=== PATIENT | male | born 1945 | race African-American/Black ===

== ENCOUNTER 2017-02-28 14:01 | Inpatient (IN) ==
--- NOTE | 2017-02-28 15:26 | Emergency Department Note ---
Arrival - Arrival Chief Complaint: Extremity Problem Stated Complaint: left foot swollen;loss of appatite ED Nursing Triage Note: reports swelling to left foot that started last . recently treated for bronchitis with levaquin and prednisone and reports swelling started after that. reports has been using epsom salt soak with some relief but swelling comes back. Mode of Arrival: Ambulatory Time Seen by Provider: 02/28/17 15:03 - History of Present Illness HPI Narrative: 72-year-old black male reports left lower extremity edema since . Denies known injury or insult. Patient reports the pain is minimal however does have tenderness of the posterior left knee. Patient was last seen on February 12 diagnosed with bronchitis, with Levaquin and prednisone. Only known history is glaucoma. Patient is otherwise healthy. Allergies/Adverse Reactions: Allergies Allergy/AdvReac Type Severity Reaction Status Date / Time Penicillins Allergy Intermediate RASH Verified 02/11/17 23:56 Review of System - Review of System 12 point system: reviewed and no additional remarkable complaints except as stated - Review of System Constitutional: Present: as per HPI. Absent: fever Medical,Surgical,& Family Hx - Medical History Cardio: History of: Hypertension HEENT: History of: Glaucoma - Social History Smoking Status: Former smoker Exam Physical Examination: - General General appearance: alert, in no apparent distress - Head Head exam: atraumatic, normocephalic, normal inspection - Eye Eye exam: normal appearance, EOMI - ENT ENT exam: normal exam, mucous membranes moist - Neck Neck exam: normal inspection, full ROM, trachea midline - Chest Chest inspection: normal inspection, symmetric chest wall rise - Respiratory Respiratory exam: normal lung sounds bilaterally, respirations even and unlabored - Cardiovascular Cardiovascular exam: regular rate, normal rhythm, normal heart sounds - Abdominal Exam Abdominal exam: soft without tenderness, normal bowel sounds - Extremities Exam Extremities exam: normal inspection, full ROM, normal capillary refill. Exception: 3+ left pedal edema, 2+ posterior tibialis pulse, stable ankle joint without crepitus, stable knee joint without crepitus, negative anterior and posterior drawer test, tender to palpation posterior left knee, no erythema or tenderness to left calf. - Back Exam Back exam: normal inspection, full ROM - Neurological Exam Neurological exam: alert, oriented X3 - Psychiatric Psychiatric exam: normal affect, normal mood - Skin Skin exam: warm, dry, intact, normal color Vital Signs: Vital Signs Temperature 98.5 F 02/28/17 14:15 Pulse Rate 85 02/28/17 14:15 Respiratory Rate 18 02/28/17 14:15 Blood Pressure 122/80 02/28/17 14:15 O2 Sat by Pulse Oximetry 97 02/28/17 14:03 Course - Reevaluation(s) Reevaluation #1: updated pt and spoke with vasu ba Time: 16:13 Time: 16:23 (hospitalist at , plan to admit) - Consultations Time: 16:14 (hospitalist) Results - Labs CBC & BMP: 02/28/17 15:33 02/28/17 15:33 - Diagnostic Findings Procedure: Ultrasound: image reviewed by me, report reviewed by me (DVT)
[2017-02-28 15:51] LABS: Basophils % 0.7 % (0.0-0.8); Eosinophils # 0.1 10*3/uL (0.0-0.87); Eosinophils % 1.8 % (0.00-10.9); Hematocrit 41.4 VOL% (42.0-52.0); Hemoglobin 14.3 GM/DL (14.0-18.0); Immature Granulocytes % 0.5 %; Immature Granulocytes Absolute 0.03 #; Lymphocytes # 1.7 10*3/uL (1.4-4.0); Lymphocytes % 28.6 % (21.2-54.2); Mean Corpuscular HGB Conc 34.5 GM/DL (32-36); Mean Corpuscular Hemoglobin 33 PG (27-34); Mean Corpuscular Volume 94.3 FL (87-102); Mean Platelet Volume 10.2 FL (9.6-12.0); Monocytes # 0.7 10*3/uL (0.11-0.8); Monocytes % 11.6 % (1.7-12.7); Neutrophils # 3.4 10*3/uL (1.4-7.4); Neutrophils % 56.8 % (38.7-73.9); Platelet Count 122 T/CUMM (130-400); Red Blood Count 4.39 MC/CUMM (3.8-5.5)
--- NOTE | 2017-02-28 15:55 | Ultrasound Report ---
Indication: Left lower extremity swelling, pain Duplex scan of the left lower extremity veins Technique: Duplex scan of the left lower extremity veins using B-mode/grayscale imaging and Doppler spectral analysis and color flow Findings: Major venous structures of the left lower extremity demonstrate noncompressibility with diffuse echogenic internal thrombus. There is no significant retained flow on color Doppler and spectral analysis suggesting diffuse acute venous thrombosis throughout the left common femoral, superficial femoral and popliteal veins. Impression: Extensive acute occlusive DVT throughout the left lower extremity. Preliminary report given to the ordering practitioner. PROCEDURE INTERPRETED AT [facility], [place] DEPARTMENT OF RADIOLOGY Final Report Signed by: Garrett Mcgrath
[2017-02-28 16:06] LABS: Albumin 2.8 G/DL (3.4-5.0); Bilirubin,Total 0.8 MG/DL (0.2-1.0); Calcium 8.4 MG/DL (8.5-10.1); Osmolality,Calculated 274.7 MOS/KG (273-304); Potassium 3.7 MMOL/L (3.5-5.1); Total Protein 6.6 G/DL (6.4-8.3)
[2017-02-28] MEDS ORDERED: ACETAMINOPHEN 325 MG TABLET PO PRN (16:33)
[2017-02-28] MEDS ORDERED: ONDANSETRON 4 MG/2 ML VIAL IV PRN (16:33)
--- NOTE | 2017-02-28 16:52 | Hospitalist History & Physical ---
Assessment and Plan - Time spent with patient Time spent with patient: Greater than 30 minutes (1) DVT (deep venous thrombosis) Status: Acute Assessment and plan: 02/28/17 Admit -Left Leg DVT- start Coumadin, Lovenox BID -Labs: Serum Protein Electrophoresis, PSA -CXR: PA and Lateral -repeat a.m. labs Discuss with Dr Jenkins and following recommendations Current Visit: Yes History of Present Illness Chief complaint: left leg swelling History of present illness: Mr. Shah is a 72 year old black male w/PMHx glaucoma, (document says hypertension, patient denies HTN history) presented to Non-urgent ED for further evaluation left leg swelling and calf tenderness. He reports the swelling started last . He denies significant pain with walking, some tenderness. He denies any shortness of breath, chest pain or tightness, fever, chills, nausea, vomiting, or headaches. He reports decrease in appetite and increase fatigue. He reports sitting more than normallly. He was recently seen in the ED and was dx and discharged with levaquin and steriods for Pneumonia. IN ED: LABS: H&H stable, WBC normal, Electrolytes WNL, Calcium 8.4 , Albumin 2.8. US VENOUS DOPPLER: extensive acute occlusive DVT throughout the left lower extremity; diffuse thrombosis throughout left common femoral, superficial femoral, and popliteal veins. Smokes 1 pack every 2 days, denies alcohol use, or drug use. Has not taken FLU for the past 2 years. Lives home alone. Ambulates without can or walker assistance. PCP: [facility] After discussion with Steven Ibrahim NP in non-urgent and Dr Jenkins with Hospital Medicine, it was agreed to admit patient for further evaluation and treatment. No home medications to review or reconcile. Allergies Allergy/AdvReac Type Severity Reaction Status Date / Time Penicillins Allergy Intermediate RASH Verified 02/11/17 23:56 Medical,Surgical,& Family Hx - Medical History Cardio: History of: Hypertension (patient denies a history of HTN) HEENT: History of: Glaucoma - Social History Smoking Status: Former smoker Frequency of Alcohol Use: None Type of Drug Use: None Lives With:: Alone Functional capacity: independent ambulation 12 point system: reviewed and no additional remarkable complaints except as stated - Constitutional Constitutional: Present: fatigue. Absent: chills, fever(s), headache(s) - Cardiovascular Cardiovascular: Present: edema (left leg/foot 2+). Absent: chest pain at rest, chest pain with activity, dyspnea, dyspnea on exertion - Gastrointestinal Gastrointestinal: Present: other (decrease in Appetite). Absent: nausea, vomiting Exam - Constitutional Vitals: Period Temp Pulse Resp BP Sys/Francis Pulse Ox Last 24 Hr 98.5 F-98.5 F 85-85 18-18 122-122/80-80 97 General appearance: normal weight, no acute distress - Head Head exam: Present: normal inspection - Eye Eye exam: Present: EOMI Pupils: Present: SITA - Neck Neck exam: Present: normal inspection. Absent: thyromegaly - Respiratory Respiratory exam: Present: clear to auscultation bilaterally. Absent: rales, rhonchi, stridor, wheezes - Cardiovascular Cardiovascular exam: Present: regular rate and rhythm - GI/Abdominal GI/Abdominal exam: Present: normal bowel sounds, soft. Absent: tenderness, rebound - Extremities Exam Extremities exam: Present: normal inspection, full ROM, edema (left foot 2+ edema) - Neurological Exam Neurological exam: Present: alert, oriented X3, CN II-XII intact - Psychiatric Psychiatric exam: Present: normal affect, normal mood. Absent: agitated, anxious - Skin Skin exam: Present: normal color, warm, dry Results - Labs CBC & BMP: 02/28/17 15:33 02/28/17 15:33 Lab Results: I have reviewed the past 24 hour labs - Impressions US Doppler extremity: Findings: Major venous structures of the left lower extremity demonstrate noncompressibility with diffuse echogenic internal thrombus. There is no significant retained flow on color Doppler and spectral analysis suggesting diffuse acute venous thrombosis throughout the left common femoral, superficial femoral and popliteal veins. Impression: Extensive acute occlusive DVT throughout the left lower extremity.
[2017-02-28] MEDS: PANTOPRAZOLE 40 MG TABLET PO SCH (18:24)
[2017-02-28] MEDS: ENOXAPARIN 80 MG/0.8 ML SYRINGE SUBCUT SCH (18:24)
--- NOTE | 2017-02-28 18:47 | XRay Report ---
2 view chest Indication: Shortness of breath DVT Comparison: February 12, 2017 Findings: Cardiomediastinal contours are normal. Lungs are clear bilaterally. . No acute osseous abnormalities. Visualized upper abdomen demonstrates no acute pathology. Impression: No acute cardiopulmonary findings PROCEDURE INTERPRETED AT [facility] [place] DEPARTMENT OF RADIOLOGY Final Report Signed by: Paulina Ashraf MD
[2017-02-28 22:05] LABS: INR 1.1
[2017-02-28] MEDS ORDERED: WARFARIN 5 MG TABLET PO SCH (23:00)
[2017-03-01] MEDS: ENOXAPARIN 80 MG/0.8 ML SYRINGE SUBCUT SCH ×2 (04:56→20:51)
[2017-03-01 06:25] LABS: Basophils % 0.5 % (0.0-0.8); Eosinophils # 0.1 10*3/uL (0.0-0.87); Hematocrit 36.8 VOL% (42.0-52.0); Hemoglobin 12.8 GM/DL (14.0-18.0); Immature Granulocytes % 0.4 %; Immature Granulocytes Absolute 0.02 #; Lymphocytes # 2.1 10*3/uL (1.4-4.0); Lymphocytes % 37.3 % (21.2-54.2); Mean Corpuscular HGB Conc 34.8 GM/DL (32-36); Mean Corpuscular Hemoglobin 32 PG (27-34); Mean Corpuscular Volume 92.9 FL (87-102); Mean Platelet Volume 10.5 FL (9.6-12.0); Monocytes # 0.7 10*3/uL (0.11-0.8); Monocytes % 12.2 % (1.7-12.7); Neutrophils # 2.6 10*3/uL (1.4-7.4); Neutrophils % 47.6 % (38.7-73.9); Platelet Count 120 T/CUMM (130-400); Red Blood Count 3.96 MC/CUMM (3.8-5.5); White Blood Count 5.5 T/CUMM (4-12)
[2017-03-01 06:27] LABS: INR 1.1; Partial Thromboplastin Time 37.7 SECS (0-40)
[2017-03-01 07:02] LABS: Calcium 8.2 MG/DL (8.5-10.1); Osmolality,Calculated 277.4 MOS/KG (273-304); Potassium 3.6 MMOL/L (3.5-5.1)
[2017-03-01 07:45] LABS: Albumin (SPE) 3.3 G/DL (3.2-5.3); Albumin (SPE) Rel % 51.5 %; Alpha 1 (SPE) 0.3 G/DL (0.1-0.4); Alpha 1 (SPE) Rel % 5.1 %; Alpha 2 (SPE) 0.8 G/DL (0.4-1.0); Alpha 2 (SPE) Rel % 12.1 %; Beta (SPE) 0.9 G/DL (0.5-1.1); Beta (SPE) Rel % 13.6 %; Gamma (SPE) 1.2 G/DL (0.7-1.7); Gamma (SPE) Rel % 17.7 %; Total Protein (Chem) 6.5 G/DL (6.4-8.3)
[2017-03-01] MEDS: PANTOPRAZOLE 40 MG TABLET PO SCH (09:53)
--- NOTE | 2017-03-01 16:30 | Hospitalist Progress Note ---
Assessment and Plan (1) DVT (deep venous thrombosis) Status: Acute Assessment and plan: The patient continues on therapeutic dose Lovenox. The patient will have second dose of warfarin this evening and will recheck INR, CBC, BMP in the morning. Current Visit: Yes Qualifiers: DVT location: lower extremity Affected thrombotic vein of extremity: femoral Chronicity: acute Laterality: left Qualified Code(s): I82.412 - Acute embolism and thrombosis of left femoral vein Hospitalist: Subjective Interval history: The patient has less discomfort in the left lower extremity. The patient had first dose of Coumadin yesterday evening and I am going to increase this dose of Coumadin to 10 mg every afternoon. The patient does not complain of shortness of breath. Exam - Constitutional Vitals: Period Temp Pulse Resp BP Sys/Francis Pulse Ox Last 24 Hr 98.2 F-99.4 F 73-87 16-20 103-131/51-77 95-98 General appearance: no acute distress - Respiratory Respiratory exam: Present: clear to auscultation bilaterally - Cardiovascular Cardiovascular exam: Present: regular rate and rhythm - GI/Abdominal GI/Abdominal exam: Present: normal bowel sounds Results - Labs CBC & BMP: 03/01/17 05:46 03/01/17 05:46 Lab Results: I have reviewed the past 24 hour labs
[2017-03-01] MEDS: WARFARIN 10 MG TABLET PO SCH (19:17)
[2017-03-02 04:46] LABS: Basophils % 0.4 % (0.0-0.8); Eosinophils # 0.1 10*3/uL (0.0-0.87); Eosinophils % 1.9 % (0.00-10.9); Hematocrit 36.4 VOL% (42.0-52.0); Hemoglobin 12.8 GM/DL (14.0-18.0); Immature Granulocytes % 0.2 %; Immature Granulocytes Absolute 0.01 #; Lymphocytes # 1.8 10*3/uL (1.4-4.0); Lymphocytes % 37.7 % (21.2-54.2); Mean Corpuscular HGB Conc 35.2 GM/DL (32-36); Mean Corpuscular Hemoglobin 33 PG (27-34); Mean Corpuscular Volume 92.6 FL (87-102); Mean Platelet Volume 10.8 FL (9.6-12.0); Monocytes # 0.5 10*3/uL (0.11-0.8); Monocytes % 10.1 % (1.7-12.7); Neutrophils # 2.4 10*3/uL (1.4-7.4); Neutrophils % 49.7 % (38.7-73.9); Platelet Count 133 T/CUMM (130-400); Red Blood Count 3.93 MC/CUMM (3.8-5.5); Red Cell Distribution Width 12.9 % (9.3-17.3); White Blood Count 4.9 T/CUMM (4-12)
[2017-03-02 04:58] LABS: INR 1.2; PT Patient Result 12.4 SECS
[2017-03-02 05:19] LABS: Magnesium 1.9 MG/DL (1.8-2.4)
[2017-03-02 05:20] LABS: Osmolality,Calculated 279.4 MOS/KG (273-304); Potassium 3.6 MMOL/L (3.5-5.1)
[2017-03-02] MEDS: PANTOPRAZOLE 40 MG TABLET PO SCH (08:56)
[2017-03-02] MEDS: ENOXAPARIN 80 MG/0.8 ML SYRINGE SUBCUT SCH ×2 (08:57→22:44)
--- NOTE | 2017-03-02 13:33 | Hospitalist Progress Note ---
Assessment and Plan (1) DVT (deep venous thrombosis) Status: Acute Assessment and plan: The patient continues on therapeutic dose Lovenox. The patient will have third dose of warfarin this evening and will recheck INR in the morning. Current Visit: Yes Qualifiers: DVT location: lower extremity Affected thrombotic vein of extremity: femoral Chronicity: acute Laterality: left Qualified Code(s): I82.412 - Acute embolism and thrombosis of left femoral vein Hospitalist: Subjective Interval history: The patient has no further shortness of breath and the left lower extremity has no swelling today. Pulses in the leg are within normal limits. Exam - Constitutional Vitals: Period Temp Pulse Resp BP Sys/Francis Pulse Ox Last 24 Hr 96.7 F-99.5 F 73-84 16-20 104-114/62-71 95-98 General appearance: no acute distress - Respiratory Respiratory exam: Present: clear to auscultation bilaterally - Cardiovascular Cardiovascular exam: Present: regular rate and rhythm - GI/Abdominal GI/Abdominal exam: Present: normal bowel sounds Results - Labs CBC & BMP: 03/02/17 04:24 03/02/17 04:23 Lab Results: I have reviewed the past 24 hour labs Labs: INR is 1.2.
[2017-03-02] MEDS: WARFARIN 10 MG TABLET PO SCH (17:34)
[2017-03-03 04:48] LABS: INR 1.8; PT Patient Result 18.3 SECS
[2017-03-03 08:33] VITALS: BP 112/73
--- NOTE | 2017-03-03 09:36 | Discharge Summary ---
Hospital Course - Hospital Course Hospital Course: The patient was admitted to hospital with edema of the left lower extremity. The patient was found to have deep vein thrombosis on the left-hand side. The patient was started on Lovenox and had good improvement of the swelling. The patient is presently asymptomatic. Patient is ready for discharge home on Coumadin for follow-up at the [facility] for Coumadin titration. On the date of discharge, chest is clear, heart has regular rate and rhythm, abdomen is soft. Left lower extremity has trace edema. Patient medications were reconciled upon admission, and again at the time of discharge. The patient was screened for tobacco use and found to be a occasional smoker. The patient was given 4 minutes of tobacco avoidance education. The patient's medical decsion maker is themself, and when asked, they asked to be Full code. Discharge Time was 32 minutes, including final examination, evaluation and planning, education, reconciliation of medications, writing prescriptions, coordinating care with case packer and sealer, and preparing discharge documentation. - Time spent with patient Time with patient DS: Greater than 30 minutes Time spent discussing smoking cessation with patient: 3 to 10 minutes (4 minutes ) Diagnosis - Discharge Diagnosis (1) DVT (deep venous thrombosis) Status: Chronic Discharge Plan - Discharge Data Disposition: Disch To Home/Self Care Condition at Discharge: Stable Discharge Diet: advance to your usual diet Activity: resume usual activities as tolerated - Discharge Medications New Warfarin [Coumadin] 5 mg PO DAILY@1800 #30 tablet Continue Triamterene/Hctz 37.5-25 Tab [Maxzide 37.5-25] 1 tablet PO DAILY Dorzolamide HCl/Timolol Maleat [Dorzolamide/Timolol Oph Soln] 1 drop BOTH EYES BID Brimonidine Tartrate [Brimonidine 0.2% Oph Soln] 1 drop BOTH EYES BID - Follow Up or Referral - Forms/Instructions Exam - Constitutional Vitals: Period Temp Pulse Resp BP Sys/Francis Pulse Ox Last 24 Hr 97.9 F-99.4 F 69-75 18-20 104-117/64-74 92-96 Discharge Results Procedures and tests throughout hospitalization: Pending Orders 03/04/17 04:00 Prothrombin Time INR IN AM 03/05/17 04:00 Prothrombin Time INR IN AM 03/06/17 04:00 Prothrombin Time INR IN AM Labs on day of discharge: Labs from last 24 hours 03/03/17 03:54 INR 1.8 PT Patient/Control Mix 18.3 D DS: Provider Date of admission: 02/28/17 16:31 Primary care physician: . No PCP Attending physician on admission: Deandre Jenkins MD Consults: 02/28/17 16:35 Consult to Case Mgmt/Social Srvs [CONS] Routine Reason for Case Mgmt/Social Srvs: Discharge Planning 02/28/17 17:41 Consult to Dietitian [CONS] Routine Reason for Dietitian: Dietary Consult Discharging clinician: Deandre Jenkins MD
[2017-03-03] MEDS ORDERED: WARFARIN 10 MG TABLET PO ONE (09:37)
[2017-03-03] MEDS: PANTOPRAZOLE 40 MG TABLET PO SCH (09:41)
[2017-03-03] MEDS: ENOXAPARIN 80 MG/0.8 ML SYRINGE SUBCUT SCH (09:42)
== END 2017-03-03 11:35 | disposition home or self-care (01) | DRG 301 ==
LOC: N.ED 14:01 → N.EDINP 16:31 → N.2E 17:28
PROVIDERS: ADMIT Internal Medicine; ATTEND Internal Medicine